=== PATIENT | female | born 1975 | race American Indian/Alaskan Native ===

== ENCOUNTER 2020-06-08 03:35 | Emergency (ER) | payer SELFPAY ==
[2020-06-08] MEDS ORDERED: traMADol 50 MG TAB PO ONE (08:06)
--- NOTE | 2020-06-08 08:23 | Emergency Department Report ---
ED Extremity Problem HPI - General Chief complaint: Extremity Injury, Lower Stated complaint: RT FOOT PAINS Time Seen by Provider: 06/08/20 07:59 Source: patient Mode of arrival: Ambulatory Limitations: No Limitations - History of Present Illness Initial comments: This is a 44-year-old female with a past medical history of HIV, HTN and breast cancer and plantar fasciitis of her right foot. Patient states that 1 week ago she missed a step while walking down the steps and she has been having pain to the arch of her right foot. Currently the pain is about 7/10 but when she walks the pain is 10/10 she denies any other traumas or injuries. Pt states in the past prednisone helped the most with her plantar fasciitis. MD Complaint: extremity pain Location: right (foot) Severity scale (0 -10): 7 Quality: aching, constant Improves with: nothing Worsens with: weight bearing, walking - Related Data Previous Rx's Medication Instructions Recorded Last Taken Type predniSONE [Deltasone] 40 mg PO QDAY 3 Days #6 tab 06/08/20 Unknown Rx traMADoL [Ultram 50 MG tab] 50 mg PO Q6HR PRN #15 tablet 06/08/20 Unknown Rx Allergies Allergy/AdvReac Type Severity Reaction Status Date / Time azithromycin [From Zithromax] Allergy Rash Verified 06/08/20 04:38 fluconazole [From Diflucan] Allergy Hives Verified 06/08/20 04:39 Sulfa (Sulfonamide Allergy Hives Verified 06/08/20 04:39 Antibiotics) sulfamethoxazole Allergy Hives Verified 06/08/20 04:38 [From Bactrim] trimethoprim [From Bactrim] Allergy Hives Verified 06/08/20 04:38 ED Review of Systems ROS: Stated complaint: RT FOOT PAINS Other details as noted in HPI Comment: All other systems reviewed and negative Constitutional: denies: see HPI, chills, fever Eyes: denies: vision change ENT: denies: ear pain, throat pain, dental pain Cardiovascular: denies: chest pain, palpitations Gastrointestinal: denies: abdominal pain Genitourinary: denies: frequency Musculoskeletal: joint swelling (right foot pain ). denies: back pain, myalgia Neurological: denies: headache, paresthesias ED Past Medical Hx - Past Medical History Previous Medical History?: Yes Hx Hypertension: Yes Hx HIV: Yes Additional medical history: Planter Fasisitis. Morbid Obesity - Surgical History Past Surgical History?: Yes Additional Surgical History: Lumpectomy, , Anal Condoloma - Social History Smoking Status: Never Smoker Substance Use Type: None - Medications Home Medications: Home Medications Medication Instructions Recorded Confirmed Last Taken Type predniSONE [Deltasone] 40 mg PO QDAY 3 Days #6 tab 06/08/20 Unknown Rx traMADoL [Ultram 50 MG tab] 50 mg PO Q6HR PRN #15 tablet 06/08/20 Unknown Rx ED Physical Exam - General Limitations: No Limitations General appearance: alert, in no apparent distress - Head Head exam: Present: atraumatic - Eye Eye exam: Present: normal appearance. Absent: conjunctival injection - ENT ENT exam: Present: mucous membranes moist - Neck Neck exam: Present: normal inspection - Respiratory Respiratory exam: Present: normal lung sounds bilaterally - Cardiovascular Cardiovascular Exam: Present: regular rate, normal heart sounds - Extremities Exam Extremities exam: Present: tenderness (to the arch of right foot. No pedal swelling, sensation intact 2+ dp pulse) - Neurological Exam Neurological exam: Present: alert, oriented X3 - Psychiatric Psychiatric exam: Present: normal affect - Skin Skin exam: Present: warm, dry, intact, normal color ED Course Vital Signs 06/08/20 04:08 Temperature 98.3 F Pulse Rate 95 H Respiratory 18 Rate Blood Pressure 132/111 O2 Sat by Pulse 99 Oximetry - Reevaluation(s) Reevaluation #1: 06/08/20 10:14 Pain has improved patient in no distress I discussed x-ray findings with patient including the questionable lucency ED Medical Decision Making - Radiology Data Radiology results: report reviewed RIGHT FOOT 2 VIEWS INDICATION / CLINICAL INFORMATION: missed step, right foot pain x 1 week. COMPARISON: None available. FINDINGS: Questionable lucency in the proximal third metatarsal. No other significant skeletal abnormality - Medical Decision Making X-ray with no acute fractures seen questionable translucency seen at the proximal third metacarpal by radialogist. On examination patient is non-tender at this location. Full range of motion of her toes no swelling over. This is likely a flareup of her plantar fasciitis. Patient states that prednisone has helped her the most in the past. Plan to prescribe prednisone 40 mg x 3 days and tramadol for pain. Patient's blood pressure is elevated. she has a history of hypertension has not taken her morning medications. I instruct patient to return home and take her amlodipine losartan and Catapres as prescribed by her doctor - Differential Diagnosis FOOT SPRAIN, Strain Critical Care Time: No Critical care attestation.: If time is entered above; I have spent that time in minutes in the direct care of this critically ill patient, excluding procedure time. ED Disposition Clinical Impression: Plantar fasciitis Disposition: TO HOME OR SELFCARE Is pt being admited?: No Does the pt Need Aspirin: No Instructions: Plantar Fasciitis (ED) Additional Instructions: This is your Xray report. FINDINGS: Questionable lucency in the proximal third metatarsal. No other significant skeletal abnormality Please follow up with your doctor or Dr. Montoya Orthopedist . Warm foot soaks at least twice a day for 1 week Consider purchasing a Adjustable Foot Plantar Fasciitis Arch Support Compression Sock Ankle Heel Brace from your local pharmacy Prescriptions: predniSONE [Deltasone] 40 mg PO QDAY 3 Days #6 tab traMADoL [Ultram 50 MG tab] 50 mg PO Q6HR PRN #15 tablet PRN Reason: Pain Referrals: PRIMARY CARE, [Primary Care Provider] - 3-5 Days SHAILESH MILTON MD [Staff Physician] - 3-5 Days Time of Disposition: 09:36
--- NOTE | 2020-06-08 08:43 | XRay Report ---
RIGHT FOOT 2 VIEWS INDICATION / CLINICAL INFORMATION: missed step, right foot pain x 1 week. COMPARISON: None available. FINDINGS: Questionable lucency in the proximal third metatarsal. No other significant skeletal abnormality Signer Name: Xiang Mccracken MD FACR Signed: 06/08/2020 8:39 AM Workstation Name: [id number]
[2020-06-08 10:01] VITALS: BP 178/105
== END 2020-06-08 10:15 | disposition home or self-care (01) ==
LOC: ED 03:35
DX: M72.2 Plantar fascial fibromatosis (principal); I10 Essential (primary) hypertension; Z88.1 Allergy status to other antibiotic agents; Z88.2 Allergy status to sulfonamides
CPT/HCPCS: 99283